=== PATIENT | male | born 1970 | race African-American/Black ===

== ENCOUNTER 2018-09-02 10:09 | Emergency (ER) | payer OTHER ==
[2018-09-02 10:15] VITALS: BP 125/69
[2018-09-02] MEDS ORDERED: INDOMETHACIN 50 MG CAPSULE PO ONE (10:42)
--- NOTE | 2018-09-02 11:34 | RADIOLOGY REPORT (SQ) ---
EXAM DESCRIPTION: FINGER RIGHT COMPLETED DATE/TIME: 09/02/2018 11:10 am REASON FOR STUDY: r thumb pain COMPARISON: None. NUMBER OF VIEWS: Three views. TECHNIQUE: AP, lateral, and oblique images acquired of the right thumb. LIMITATIONS: None. FINDINGS: MINERALIZATION: Normal. BONES: No acute fracture or dislocation. No worrisome bone lesions. SOFT TISSUES: Chondrocalcinosis base of the 1st metacarpal. No foreign body. OTHER: No other significant finding. IMPRESSION: NO RADIOGRAPHIC EVIDENCE OF ACUTE INJURY. COMMENT: SITE OF TRAUMA/COMPLAINT MARKED/STAMP COMPLETED: YES. TECHNICAL DOCUMENTATION: JOB ID: [id number] [employer]- All Rights Reserved Reading location - IP/workstation name: [email or web address]
--- NOTE | 2018-09-02 11:41 | ER Document Report ---
HPI - HPI Patient complains to provider of: Right hand pain Time Seen by Provider: 09/02/18 10:28 Onset: Yesterday Onset/Duration: Gradual Quality of pain: Achy Pain Level: 3 Context: Presents complaining of pain to the base of the right thumb that started yesterday. Patient denies any injury. No history of any previous pain to the thumb in the past. Patient denies any history of gout. Associated Symptoms: Other - Right thumb tenderness. denies: Fever Exacerbated by: Movement Relieved by: Denies Similar symptoms previously: No Recently seen / treated by doctor: No - ROS ROS below otherwise negative: Yes Systems Reviewed and Negative: Yes All other systems reviewed and negative - CONSTITUTIONAL Constitutional: DENIES: Fever - NEURO Neurology: DENIES: Weakness - MUSCULOSKELETAL Musculoskeletal: REPORTS: Extremity pain, Swelling - DERM Skin Color: Normal Skin Problems: None Past Medical History - General Information source: Patient - Social History Smoking Status: Never Smoker Chew tobacco use (# tins/day): No Frequency of alcohol use: None Drug Abuse: None Occupation: [place] Family History: Reviewed & Not Pertinent Patient has suicidal ideation: No Patient has homicidal ideation: No - Medical History Medical History: Negative Renal/ Medical History: Denies: Hx Peritoneal Dialysis Surgical Hx: Negative Vertical Provider Document - CONSTITUTIONAL Agree With Documented VS: Yes Exam Limitations: No Limitations General Appearance: WD/WN, No Apparent Distress - INFECTION CONTROL TRAVEL OUTSIDE OF THE [place] IN LAST 30 DAYS: No - HEENT HEENT: Atraumatic, Normocephalic - NECK Neck: Normal Inspection, Supple. negative: Lymphadenopathy-Left, Lymphadenopathy-Right - RESPIRATORY Respiratory: Breath Sounds Normal, No Respiratory Distress - CARDIOVASCULAR Cardiovascular: Regular Rate, Regular Rhythm Pulses: Normal: Radial - MUSCULOSKELETAL/EXTREMETIES Musculoskeletal/Extremeties: MAEW, Tender - Tenderness to right thumb CMC joint, 1+ edema, no deformity, no dislocation, no overlying erythema, Edema - NEURO Level of Consciousness: Awake, Alert, Appropriate Motor/Sensory: No Motor Deficit - DERM Integumentary: Warm, Dry, No Rash Course - Re-evaluation Re-evalutation: 09/02/18 11:38 Patient without any known injury and no obvious bony abnormality on x-ray. Patient denies any history of gout. Area is very tender to touch, no fever, no concern for septic arthritis at this time. Will treat symptomatically with good return precautions discussed. - Vital Signs Vital signs: Temp Pulse Resp BP Pulse Ox 98.3 F 73 18 125/69 97 09/02/18 10:13 09/02/18 10:13 09/02/18 10:13 09/02/18 10:13 09/02/18 10:13 - Diagnostic Test Radiology reviewed: Image reviewed, Reports reviewed Discharge - Discharge Clinical Impression: Pain of right thumb Condition: Stable Disposition: HOME, SELF-CARE Instructions: Anti-Inflammatory Medication ([facility]), Arthralgia ([facility]) Additional Instructions: Return immediately for any new or worsening symptoms: Increased pain, fever, skin color changes, increased swelling, or any concerning symptoms Followup with your primary care provider, call tomorrow to make a followup appointment Follow-up with orthopedics for any persistent pain or problems Prescriptions: Indomethacin [Indocin 50 Mg Capsule] 50 mg PO TID PRN #12 capsule PRN Reason: Forms: Return to Work Referrals: EILEEN GARCIA DO [ACTIVE STAFF] - Follow up as needed
== END 2018-09-02 12:01 | disposition home or self-care (01) ==
LOC: ER 10:09
DX: M79.644 Pain in right finger(s) (principal)
CPT/HCPCS: 99283; 73140; J3490